=== PATIENT | female | born 1985 | race Caucasian/White ===

== ENCOUNTER 2016-11-07 10:02 | Emergency (ER) | payer MEDICAID, MEDICARE ==
[2016-11-07 10:14] VITALS: BP 106/65
--- NOTE | 2016-11-07 11:31 | EDM.PDOC ---
ED HPI GENERAL MEDICAL PROBLEM - General Chief Complaint: [employer] Problem Stated Complaint: FROM [facility] Time Seen by Provider: 11/07/16 11:00 Source of Information: Reports: Patient History Limitations: Reports: No Limitations - History of Present Illness INITIAL COMMENTS - FREE TEXT/NARRATIVE: Patient presents to ER today with complaints of pelvic cramping radiating to her low back at times. She states the pain started as intermittent and has become more constant. She reports increase of white to yellow vaginal discharge. She denies current risk for sexually transmitted diseases. Onset Date: 11/06/16 Onset Time: 10:00 Duration: Hour(s): Location: Reports: Other (Low abdomen/pelvis) Quality: Reports: Other (cramping) Severity: Mild Improves with: Reports: None Worsens with: Reports: None Associated Symptoms: Reports: No Other Symptoms. Denies: Fever/Chills, Headaches, Nausea/Vomiting, Shortness of Breath Left Lower Abdomen Pain Score (Numeric/FACES): 6 - Related Data Allergies Allergy/AdvReac Type Severity Reaction Status Date / Time ibuprofen Allergy Other Verified 11/07/16 10:18 Past Medical History [employer] History: Reports: , Spontaneous : 4 Para: 3 Other OB/BYN History: Reports she is 10 weeks . 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 Denies: Shortness of Breath, Wheezing, Cough Cardiovascular: Denies: Chest Pain, Blood Pressure Problem, Dyspnea on Exertion , Edema, Lightheadedness Endocrine: Denies: Fatigue GI/Abdominal: Reports: Other (She complains of low pelvic cramping pain. ). Denies: Constipation, Diarrhea, Nausea, Vomiting : Reports: Discharge, Other (Increase in white/yellow vaginal discharge. ). Denies: Dysuria, Flank Pain, Frequency, Hematuria, Incontinence, Urgency Musculoskeletal: Reports: No Symptoms Skin: Reports: No Symptoms Neurological: Reports: No Symptoms Psychiatric: Reports: Other (Her reported last use of methamphet). Denies: Agitation, Anxiety, Confusion Hematologic/Lymphatic: Reports: No Symptoms Immunologic: Reports: No Symptoms ED EXAM - Physical Exam Exam: See Below Exam Limited By: No Limitations General Appearance: Alert, WD/WN, No Apparent Distress Eye Exam: Bilateral Eye: PERRL Ears: Normal External Exam, Normal Canal, Hearing Grossly Normal, Normal TMs Throat/Mouth: Normal Inspection, Normal Lips, Normal Teeth, Normal Gums, Normal Oropharynx, Normal Voice, No Airway Compromise, Perioral Cyanosis Head: Atraumatic Neck: Normal Inspection, Supple, Non-Tender, Full Range of Motion Respiratory/Chest: No Respiratory Distress, Lungs Clear, Normal Breath Sounds, No Accessory Muscle Use, Chest Non-Tender Cardiovascular: Normal Peripheral Pulses, Regular Rate, Rhythm, No Edema, No Gallop, No Murmur, No Rub GI/Abdominal: Normal Bowel Sounds, Soft, Non-Tender, No Organomegaly, Other ( FHT 163-167, strong and regular. ) (Female) Exam: Normal External Exam, Normal Speculum Exam, Enlarged Uterus, Vaginal Discharge, Other (10 weeks ). No: Cervical Dilatation, Cervical Lesions, Products of Conception, Tissue Present in Cervix/Vagina, Uterine Tenderness, Vaginal Bleeding, Vaginal Lesions, Vaginal Tears Heart Tones: Present Heart Tones per Min: 163 Movement: Active Back Exam: Normal Inspection, Full Range of Motion. No: CVA Tenderness (R), CVA Tenderness (L) Extremities: Normal Inspection, Normal Range of Motion, Non-Tender, No Pedal Edema, Normal Capillary Refill Neurological: Alert, Oriented, Normal Cognition, Normal Gait, Normal Reflexes, No Motor/Sensory Deficits Psychiatric: Normal Affect, Normal Mood Skin Exam: Warm, Dry, Intact, Normal Color, No Rash Lymphatic: No Adenopathy ED Add Procedures - Additional/Other Procedure(s) Procedure(s) (Free Text): Pelvic exam with speculum and lubrication. Patient tolerated well, no bleeding, lesions, laceration noted. Cervix identified, no dilation noted. Course - Vital Signs Last Recorded V/S: Last Vital Signs Temp 36.4 C 11/07/16 10:12 Pulse 64 11/07/16 10:12 Resp 14 11/07/16 10:12 BP 106/65 11/07/16 10:12 Pulse Ox 99 11/07/16 10:12 - Orders/Labs/Meds Orders: Active Orders 24 hr Category Date Time Status CHLAMYDIA,AND GC BY APTIMA Routine Lab 11/07/16 12:48 Received Wet prep negative. - Re-Assessments/Exams Free Text/Narrative Re-Assessment/Exam: 11/07/16 13:38 Patient has been resting without significant pain. She can take acetaminophen or ibuprofen as needed for pain. Departure - Departure Time of Disposition: 13:00 Disposition: Home, Self-Care 01 Condition: good Clinical Impression: Round ligament pain - Discharge Information Referrals: PCP,None [Primary Care Provider] - Forms: ED Department Discharge Additional Instructions: You are suffering from round ligament pain that can happen with a growing fetus in your uterus. You may take frequent rest breaks during the day, drink plenty of water, stay away from illicit drugs, alcohol and caffeine. You can take acetaminophen 650mg PO four times a day as needed. You can also take ibuprofen 600mg PO three times a day as needed. Do not take ibuprofen after you are 6 months . You need to follow up with your primary provider/[employer] this next week. - My Orders Last 24 Hours: My Active Orders 11/07/16 12:48 CHLAMYDIA,AND GC BY APTIMA Routine - Assessment/Plan Last 24 Hours: My Active Orders 11/07/16 12:48 CHLAMYDIA,AND GC BY APTIMA Routine
== END 2016-11-07 14:00 | disposition home or self-care (01) ==
LOC: JP.ED 10:02
DX: O99.89 Other specified diseases and conditions complicating pregnancy, childbirth and the puerperium (principal); R10.2 Pelvic and perineal pain; F17.210 Nicotine dependence, cigarettes, uncomplicated; Z88.6 Allergy status to analgesic agent
CPT/HCPCS: 87210; 87491; 87591; 99283; 99284